=== PATIENT | female | born 1960 | race Caucasian/White ===

== ENCOUNTER 2017-12-31 12:35 | Emergency (ER) | payer OTHER ==
[~2017-12-31] VITALS: Ht 167.6 cm; Wt 88.5 kg
[2017-12-31] MEDS ORDERED: LISINOPRIL-HCT1 EACH PO (12:59)
[2017-12-31 13:49] LABS: HEMATOCRIT 37.4 % (37.0-47.0); HEMOGLOBIN 12.5 gm/dL (12.0-15.0); MCH 26.9 pg (26.0-34.0); MCHC 33.4 g/dL (28.0-37.0); MCV 80.7 fL (80.0-100.0); MPV 7.5 fl. (7.2-11.1); NUCLEATED RBCS 0 /100WBC; PLATELET COUNT* 224 thou/uL (150-400); RBC 4.63 mil/uL (4.20-5.00); RDW-CV 14.1 % (10.5-14.5); WBC 8.7 thou/uL (4.0-11.0)
[2017-12-31 13:53] LABS: URINE BILIRUBIN NEGATIVE (Negative); URINE BLOOD NEGATIVE (Negative); URINE CLARITY CLEAR; URINE COLOR YELLOW; URINE GLUCOSE-RANDOM NEGATIVE (Negative); URINE KETONES NEGATIVE (Negative); URINE LEUKOCYTES-REFLEX TRACE (Negative); URINE NITRITE-REFLEX NEGATIVE (Negative); URINE PROTEIN NEGATIVE (Negative); URINE SPECIFIC GRAVITY <= 1.005 (1.005-1.030); URINE UROBILINOGEN 0.2 E.U./dl (0.2-1.0)
[2017-12-31 13:58] LABS: ANION GAP 7 mmol/L (7-16); BUN 9 mg/dL (7-18); CALCIUM 8.8 mg/dL (8.5-10.1); CHLORIDE 104 mmol/L (98-107); CO2 30 mmol/L (21-32); CREATININE 0.8 mg/dL (0.6-1.3); GLUCOSE 123 mg/dL (70-99); POTASSIUM 3.9 mmol/L (3.5-5.1); SODIUM 141 mmol/L (136-145)
[2017-12-31 14:00] LABS: CASTS None Seen /LPF (None Seen); SQUAMOUS 4-10 Moderate /LPF (0-3)
[2017-12-31 14:01] LABS: BACTERIA-REFLEX None Seen /HPF (None Seen); CRYSTALS None Seen /LPF (None Seen); URINE RBC 0-2 Rare /HPF (0-2); URINE WBC-REFLEX 0-5 Rare /HPF (0-5)
[2017-12-31 14:05] LABS: ALBUMIN 3.2 g/dL (3.4-5.0); ALKALINE PHOSPHATASE 72 U/L (46-116); MAGNESIUM 2.1 mg/dL (1.8-2.4); SGOT 56 U/L (15-37); SGPT 126 U/L (30-65); TOTAL BILIRUBIN 0.4 mg/dL (<0.1-1.0); TOTAL PROTEIN 7.4 g/dL (6.4-8.2); TROPONIN-I LEVEL <0.06 ng/mL (<0.06)
[2017-12-31 14:09] LABS: ABSOLUTE BASOPHILS 0.1 thou/uL (0.0-0.2); ABSOLUTE EOSINOPHILS 0.1 thou/uL (0.0-0.7); ABSOLUTE MONOCYTES 0.4 thou/uL (0.0-1.2); ABSOLUTE NEUTROPHILS 2.6 thou/uL (1.6-8.1)
[2017-12-31 14:10] LABS: ABSOLUTE LYMPHOCYTES 5.5 thou/uL (0.8-5.3); ATYPICAL LYMPHS 3 %; PLATELET ESTIMATE ADEQUATE
[2017-12-31] MEDS ORDERED: CYCLOBENZAPRINE10 MG PO (16:55)
[2017-12-31 16:59] VITALS: BP 146/83
--- NOTE | 2018-01-01 13:07 | EKG ---
[place] [address] ELECTROCARDIOGRAM REPORT Name: DIALLO BLANTON Room: [facility]#: [id number] Admission: 12/31/17 Attend Phys: Discharge: 12/31/17 Date of : 58 Report #: [id number] THIS REPORT FOR: //name// [facility] ED Test Date: 2017-12-31 Test Time: 12:59:07 Pat Name: DIALLO BLANTON Department: Room: Gender: F [employer]airer: Parker ARGUELLO : 1960 Requested By: Makeda Escobedo Order Number: [id number] MD: Aleksey Huynh Measurements Intervals [place] Rate: 106 P: 43 HI: 150 QRS: 38 QRSD: 96 T: -12 QT: 334 QTc: 444 Interpretive Statements Sinus tachycardia Borderline T wave abnormalities No previous ECG available for comparison Electronically Signed On 01-01-2018 13:07:04 CDT by Aleksey Huynh [email or web address] <ELECTRONICALLY SIGNED> By: Aleksey Huynh MD, [facility] 01/01/18 1307 [id number] Aleksey Huynh MD, FACC /EPI
== END 2017-12-31 16:59 | disposition home or self-care (01) ==
LOC: M.ERS 12:35
PROVIDERS: Nurse Practitioner Family
DX: R42 Dizziness and giddiness (principal); M54.6 Pain in thoracic spine; R06.00 Dyspnea, unspecified; I10 Essential (primary) hypertension; Z90.89 Acquired absence of other organs